=== PATIENT | male | born 1980 | race Two or more races ===

== ENCOUNTER 2022-01-29 04:21 | Emergency (ER) | payer SELFPAY ==
[2022-01-29] MEDS ORDERED: Ketorolac 30 MG/ML SDV IM ONE (04:37)
[2022-01-29] MEDS ORDERED: Diazepam 2 MG Tab PO ONE (04:42)
[2022-01-29] MEDS ORDERED: Lidocaine 5% 700 MG Patch TRDERM ONE (06:12)
== END 2022-01-29 06:53 | disposition home or self-care (01) ==
LOC: MW.ED 04:21
DX: M51.26 Other intervertebral disc displacement, lumbar region (principal); M62.830 Muscle spasm of back
CPT/HCPCS: 72131; 96372; 99283; A9270; J1885; 99284

== ENCOUNTER 2022-08-18 11:41 | Emergency (ER) | payer BC ==
[2022-08-18 13:16] LABS: CORONAVIRUS COVID-19 NAA NEGATIVE (NEGATIVE); INFLUENZA A NAA NEGATIVE (NEGATIVE); INFLUENZA B NAA NEGATIVE (NEGATIVE); RESPIRATORY SYNCYTIAL VIR NAA NEGATIVE (NEGATIVE)
== END 2022-08-18 15:05 | disposition home or self-care (01) ==
LOC: MW.ED 11:41
DX: J06.9 Acute upper respiratory infection, unspecified (principal); J45.909 Unspecified asthma, uncomplicated; Z91.048 Other nonmedicinal substance allergy status; Z20.822 Contact with and (suspected) exposure to COVID-19
CPT/HCPCS: 0241U; 87651; 99283